=== PATIENT | female | born 1935 | race Hispanic/Latino ===

== ENCOUNTER → 2019-08-24 | Day surgery (SDC) | payer MEDICARE, OTHER ==
[~2019-08-24] MED LIST: ACETAMINOPHEN325 M1 PO; ARICEPT5 MG PO; ASPIR 8181 MG PO; ASPIRIN325 MG PO; ASPIRIN81 MG; BISCOLAX10 MG RC; CEFAZOLIN SOD 1 GM/NS 50ML 50 ML IV ONE; CYMBALTA60 MG PO; DOXYCYCLINE MO100 MG PO; ENALAPRIL MALEA20 MG PO; ENALAPRIL-HCTZ1 EACH PO; ENSURE LIQUID237 ML; EXELON1 EAC1 TOP; FENTANYL CITRATE/PF 100MCG/2 ML INJ ONE; GABAPENTIN100 MG PO; GLUCAGON FOR INJ 1 MG VIAL IV STA; HCT PO; HYDROCHLOROTH12.5 M1 PO; HYDROCODON-ACE1 EA16 PO; IOPAMIDOL 300MG/ML 100 ML INFUS..BTL IV ONE; LABETALOL HCL100 MG PO; LEVOTHYROXINE50 MCG PO; LIDOCAINE HCL 1% LOCAL INJ 20 ML VIAL ONE; METOPROLOL SUCC25 MG PO; MIDAZOLAM HCL 2 MG/2 ML VIAL ONE; MIRALAX17 GM PO; MULTI-VITAMIN1 EACH PO; NAPROSYN500 MG PO; NEURONTIN100 MG PO; NORCO 5-325 TA1 EACH PO; NORCO 7.5-3251 EACH PO; OYSTER SHELL C1 EACH PO; PENTOXIFYLLINE400 MG PO; PRAVASTATIN PO; PRAVASTATIN SOD40 MG PO; PROPOFOL IV EMULSION 10 MG/ML 20 ML VIAL ONE; REMERON15 M1 PO; SAVELLA50 MG PO; SENOKOT8.6 MG PO; SEROQUEL25 MG PO; SERTRALINE HCL100 MG PO; SODIUM CHLORIDE 0.9% 250ML 250 ML ONE; TOPROL XL25 MG PO; TRENTAL400 MG PO; TYLENOL EXTRA500 MG PO; TYLENOL WITH C1 EACH PO; ULTRAM 50MG50 MG PO; ULTRAM50 MG PO; VANCOMYCIN HCL500 MG IV; VASOTEC10 MG PO; VESICARE5 MG PO; VITAMIN D1000 UNIT PO; ZOCOR40 MG PO; [UNRECOGNIZED DRUG - OTHER]; [UNRECOGNIZED DRUG - REMARK]; megace PO
--- OUTSIDE RECORDS SUMMARY | 2019-08-24 08:45 | XMS REPORT ---
Author Author [facility] Address Unknown Phone Unavailable Care Team Providers Care Taker Off Name Role Phone Unavailable Unavailable Payers Payer Name Policy Type Policy Number Effective Date Expiration Date Problems This patient has no known problems. Allergies, Adverse Reactions, Alerts Allergy Name Allergy Type Status Severity Reaction(s) Onset Date Inactive Date Treating Clinician Comments No Known Allergies DA Active U 2019-06-16 00:00:00 No Known Allergies DA Active U 2014-07-31 00:00:00 Medications This patient has no known medications. Results Test Description Test Time Test Comments Text Results Atomic Results Result Comments GLUBED 2019-06-21 11:36:00 GLUBED (test code=GLUBED) 116 mg/dL 74-106 Performed by certified cover machine operator at [facility] HGB [id number] 07:46:00* Test Item Value Reference Range Comments HEMOGLOBIN (test code=HGB) 9.8 gram/dL 11.5-15.5 HEMATOCRIT (test code=HCT) 30.7 % 36.0-46.0 [id number] 07:42:00* Test Item Value Reference Range Comments GLUBED (test code=GLUBED) 114 mg/dL 74-106 Performed by certified cover machine operator at [facility] [id number] 20:44:00* Test Item Value Reference Range Comments GLUBED (test code=GLUBED) 137 mg/dL 74-106 Performed by certified cover machine operator at [facility] [id number] 16:18:00* Test Item Value Reference Range Comments GLUBED (test code=GLUBED) 124 mg/dL 74-106 Performed by certified cover machine operator at [facility] BASIC METABOLIC [id number] 12:58:00* Test Item Value Reference Range Comments SODIUM (test code=NA) 145 mmol/L 136-145 POTASSIUM (test code=K) 3.8 mmol/L 3.5-5.1 CHLORIDE (test code=CL) 111.0 mmol/L 98-107 CARBON DIOXIDE (test code=CO2) 30.0 mmol/L 21-32 ANION GAP (test code=GAP) 7.8 10-20 GLUCOSE (test code=GLU) 131 mg/dL 74-106 BLOOD UREA NITROGEN (test code=BUN) 21 mg/dL 7-18 GLOMERULAR FILTRATION RATE (test code=GFR) > 60 mL/min >=60 Estimated GFR by using Modified MDRD formula.Chronic kidney disease is defined as either kidney damageor GFR <60 mL/min/1.73 m2 for >3 months. CREATININE (test code=CREAT) 0.50 mg/dL 0.55-1.02 Note change in reference range due to change in reagent. BUN/CREATININE RATIO (test code=BUN/CREA) 42.0 10-20 CALCIUM (test code=CA) 7.9 mg/dL 8.5-10.1 BASIC METABOLIC [id number] 12:50:00* Test Item Value Reference Range Comments SODIUM (test code=NA) 145 mmol/L 136-145 POTASSIUM (test code=K) 3.8 mmol/L 3.5-5.1 CHLORIDE (test code=CL) 111.0 mmol/L 98-107 CARBON DIOXIDE (test code=CO2) mmol/L 21-32 ANION GAP (test code=GAP) 10-20 GLUCOSE (test code=GLU) mg/dL 74-106 BLOOD UREA NITROGEN (test code=BUN) mg/dL 7-18 GLOMERULAR FILTRATION RATE (test code=GFR) mL/min >=60 CREATININE (test code=CREAT) mg/dL 0.55-1.02 BUN/CREATININE RATIO (test code=BUN/CREA) 10-20 CALCIUM (test code=CA) mg/dL 8.5-10.1 CBC W/AUTO [id number] 12:27:00* Test Item Value Reference Range Comments WHITE BLOOD CELL (test code=WBC) 4.7 K/mm3 4.5-12.5 RED BLOOD CELL (test code=RBC) 3.02 mill/mm3 3.7-5.2 HEMOGLOBIN (test code=HGB) 9.3 gram/dL 11.5-15.5 HEMATOCRIT (test code=HCT) 28.9 % 36.0-46.0 MEAN CELL VOLUME (test code=MCV) 95.7 fL 80-98 MEAN CELL HGB (test code=MCH) 30.8 picogram 27.0-33.0 MEAN CELL HGB CONCETRATION (test code=MCHC) 32.2 gram/dL 33.0-36.0 RED CELL DISTRIBUTION WIDTH (test code=RDW) 13.1 % 11.6-16.2 RED CELL DISTRIBUTION WIDTH SD (test code=RDW-SD) 45.3 fL 37.0-51.0 PLATELET COUNT (test code=PLT) 159 K/mm3 150-450 MEAN PLATELET VOLUME (test code=MPV) 11.7 fL 6.7-11.0 NEUTROPHIL % (test code=NT%) 64.6 % 39.0-69.0 IMMATURE GRANULOCYTE % (test code=IG%) 0.2 % 0.0-5.0 LYMPHOCYTE % (test code=LY%) 21.4 % 25.0-55.0 MONOCYTE % (test code=MO%) 8.1 % 0.0-10.0 EOSINOPHIL % (test code=EO%) 5.3 % 0.0-5.0 BASOPHIL % (test code=BA%) 0.4 % 0.0-1.0 NUCLEATED RBC % (test code=NRBC%) 0.0 % 0-0 NEUTROPHIL # (test code=NT#) 3.04 K/mm3 1.8-7.7 IMMATURE GRANULOCYTE # (test code=IG#) 0.01 x10 3/uL 0-0.03 LYMPHOCYTE # (test code=LY#) 1.01 K/mm3 1.0-5.0 MONOCYTE # (test code=MO#) 0.38 K/mm3 0-0.8 EOSINOPHIL # (test code=EO#) 0.25 K/mm3 0.0-0.5 BASOPHIL # (test code=BA#) 0.02 K/mm3 0.0-0.2 NUCLEATED RBC # (test code=NRBC#) 0.00 K/mm3 0.0-0.1 MANUAL DIFF REQUIRED (test code=MDIFF) NO [id number] 11:48:00* Test Item Value Reference Range Comments GLUBED (test code=GLUBED) 129 mg/dL 74-106 Performed by certified cover machine operator at [facility] [id number] 08:21:00* Test Item Value Reference Range Comments GLUBED (test code=GLUBED) 129 mg/dL 74-106 Performed by certified cover machine operator at [facility] [id number] 21:12:00* Test Item Value Reference Range Comments GLUBED (test code=GLUBED) 111 mg/dL 74-106 Performed by certified cover machine operator at [facility] [id number] 16:28:00* Test Item Value Reference Range Comments GLUBED (test code=GLUBED) 132 mg/dL 74-106 Performed by certified cover machine operator at [facility] [id number] 11:51:00* Test Item Value Reference Range Comments GLUBED (test code=GLUBED) 162 mg/dL 74-106 Performed by certified cover machine operator at [facility] CBC W/AUTO [id number] 09:41:00* Test Item Value Reference Range Comments WHITE BLOOD CELL (test code=WBC) 6.0 K/mm3 4.5-12.5 RED BLOOD CELL (test code=RBC) 3.33 mill/mm3 3.7-5.2 HEMOGLOBIN (test code=HGB) 10.5 gram/dL 11.5-15.5 HEMATOCRIT (test code=HCT) 32.0 % 36.0-46.0 MEAN CELL VOLUME (test code=MCV) 96.1 fL 80-98 MEAN CELL HGB (test code=MCH) 31.5 picogram 27.0-33.0 MEAN CELL HGB CONCETRATION (test code=MCHC) 32.8 gram/dL 33.0-36.0 RED CELL DISTRIBUTION WIDTH (test code=RDW) 12.6 % 11.6-16.2 RED CELL DISTRIBUTION WIDTH SD (test code=RDW-SD) 44.3 fL 37.0-51.0 PLATELET COUNT (test code=PLT) 153 K/mm3 150-450 MEAN PLATELET VOLUME (test code=MPV) 12.2 fL 6.7-11.0 NEUTROPHIL % (test code=NT%) 65.4 % 39.0-69.0 IMMATURE GRANULOCYTE % (test code=IG%) 0.2 % 0.0-5.0 LYMPHOCYTE % (test code=LY%) 21.8 % 25.0-55.0 MONOCYTE % (test code=MO%) 11.6 % 0.0-10.0 EOSINOPHIL % (test code=EO%) 0.7 % 0.0-5.0 BASOPHIL % (test code=BA%) 0.3 % 0.0-1.0 NUCLEATED RBC % (test code=NRBC%) 0.0 % 0-0 NEUTROPHIL # (test code=NT#) 3.90 K/mm3 1.8-7.7 IMMATURE GRANULOCYTE # (test code=IG#) 0.01 x10 3/uL 0-0.03 LYMPHOCYTE # (test code=LY#) 1.30 K/mm3 1.0-5.0 MONOCYTE # (test code=MO#) 0.69 K/mm3 0-0.8 EOSINOPHIL # (test code=EO#) 0.04 K/mm3 0.0-0.5 BASOPHIL # (test code=BA#) 0.02 K/mm3 0.0-0.2 NUCLEATED RBC # (test code=NRBC#) 0.00 K/mm3 0.0-0.1 MANUAL DIFF REQUIRED (test code=MDIFF) NO - XR HIP W/PEL UNI 2+V [id number] 09:26:00 FAX: Taz Whalen [phone] [place]: B St: [facility] FAX: Vi Sanchez MD FAX: Basil Escobar [phone] Name: JONATHAN CRUZ [facility] : 1935 Age/S: 84/F [address] [facility] Unit #: [id number] Loc: [address] [place] [address] Phys: Taz Connors Jr, MD Acct: [id number] Dis Date: Status: ADM IN ONE #: [phone] Exam Date: 06/19/2019 0900 FAX #: [phone] Reason: S/P ORIF left hip EXAMS: CPT CODE: [id number] XR HIP W/PEL UNI 2+[place] [id number] HISTORY: S/P ORIF left hip EXAM: AP pelvis as well as 2 views of the left hip Comparison: Pelvic radiographs June 16, 2019 FINDI NGS: Patient has undergone interval ORIF of the intertrochanteric femoral fracture. Bony alignment is satisfactory postoperatively. Soft tis sues overlying the proximal left thigh are swollen. 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 IMPRESSION: Satis factory bone alignment following ORIF of left femoral intertrochanteric fracture. at 0915 Reported and signed by: Lucas Tilley MD CC: Taz Connors Jr, MD; Vi Gerber MD; Basil Palacios MD Technologist: Ines Nava RT(R) Trnscrd Date/Time/By: 06/19/2019 (925) : By: [email or web address] Orig Print D/T: S: 06/19/2019 (9577) PAGE 1 Signed Report BASIC METABOLIC [id number] 09:02:00* Test Item Value Reference Range Comments SODIUM (test code=NA) 143 mmol/L 136-145 POTASSIUM (test code=K) 3.8 mmol/L 3.5-5.1 CHLORIDE (test code=CL) 108.0 mmol/L 98-107 CARBON DIOXIDE (test code=CO2) 29.0 mmol/L 21-32 ANION GAP (test code=GAP) 9.8 10-20 GLUCOSE (test code=GLU) 131 mg/dL 74-106 BLOOD UREA NITROGEN (test code=BUN) 24 mg/dL 7-18 GLOMERULAR FILTRATION RATE (test code=GFR) > 60 mL/min >=60 Estimated GFR by using Modified MDRD formula.Chronic kidney disease is defined as either kidney damageor GFR <60 mL/min/1.73 m2 for >3 months. CREATININE (test code=CREAT) 0.70 mg/dL 0.55-1.02 Note change in reference range due to change in reagent. BUN/CREATININE RATIO (test code=BUN/CREA) 33.9 10-20 CALCIUM (test code=CA) 8.3 mg/dL 8.5-10.1 BASIC METABOLIC [id number] 08:57:00* Test Item Value Reference Range Comments SODIUM (test code=NA) 143 mmol/L 136-145 POTASSIUM (test code=K) 3.8 mmol/L 3.5-5.1 CHLORIDE (test code=CL) 108.0 mmol/L 98-107 CARBON DIOXIDE (test code=CO2) mmol/L 21-32 ANION GAP (test code=GAP) 10-20 GLUCOSE (test code=GLU) mg/dL 74-106 BLOOD UREA NITROGEN (test code=BUN) mg/dL 7-18 GLOMERULAR FILTRATION RATE (test code=GFR) mL/min >=60 CREATININE (test code=CREAT) mg/dL 0.55-1.02 BUN/CREATININE RATIO (test code=BUN/CREA) 10-20 CALCIUM (test code=CA) mg/dL 8.5-10.1 [id number] 08:02:00* Test Item Value Reference Range Comments GLUBED (test code=GLUBED) 129 mg/dL 74-106 Performed by certified cover machine operator at [facility] [id number] 20:28:00* Test Item Value Reference Range Comments GLUBED (test code=GLUBED) 148 mg/dL 74-106 Performed by certified cover machine operator at [facility] [id number] 15:57:00* Test Item Value Reference Range Comments GLUBED (test code=GLUBED) 175 mg/dL 74-106 Performed by certified cover machine operator at [facility] [id number] 11:42:00* Test Item Value Reference Range Comments GLUBED (test code=GLUBED) 170 mg/dL 74-106 Performed by certified cover machine operator at [facility] URINALYSIS [id number] 10:59:00* Test Item Value Reference Range Comments UA COLOR (test code=COLU) YELLOW YELLOW UA APPEARANCE (test code=APPU) CLEAR CLEAR UA GLUCOSE DIPSTICK (test code=DGLUU) NEGATIVE mg/dL NEGATIVE UA BILIRUBIN DIPSTICK (test code=BILU) NEGATIVE mg/dL NEGATIVE UA KETONE DIPSTICK (test code=KETU) 20 (1+) mg/dL NEGATIVE UA SPECIFIC GRAVITY (test code=SGU) 1.027 1.001-1.035 UA BLOOD DIPSTICK (test code=BRIAN) Negative mg/dL NEGATIVE UA PH DIPSTICK (test code=VEL) 6.0 5.0-8.0 UA PROTEIN DIPSTICK (test code=PROU) 30 (1+) mg/dL NEGATIVE UA UROBILINIOGEN DIPSTICK (test code=URO) 6.0 (2+) mg/dL NEGATIVE UA NITRITE DIPSTICK (test code=SONNY) NEGATIVE NEGATIVE UA LEUKOCYTE ESTERASE W REFLEX (test code=LEUUR) 500 Robbie/uL (3+) Robbie/uL NEGATIVE UA WBC (test code=WBCU) 51-100 per HPF 0-5 UA RBC (test code=RBCU) 3-5 #/HPF 0-5 UA WBC CLUMPS (test code=WBCUCL) 3-6 /HPF NONE UA EPITHELIAL CELLS (test code=EPIU) FEW per HPF FEW UA BACTERIA (test code=BACU) FEW #/HPF NONE UA MUCUS (test code=MUCU) FEW #/LPF FEW Urine Source? [id number] 20:50:00* Test Item Value Reference Range Comments GLUBED (test code=GLUBED) 152 mg/dL 74-106 Performed by certified cover machine operator at [facility] [id number] 15:45:00* Test Item Value Reference Range Comments GLUBED (test code=GLUBED) 172 mg/dL 74-106 Performed by certified cover machine operator at [facility] [id number] 15:45:00* Test Item Value Reference Range Comments GLUBED (test code=GLUBED) 141 mg/dL 74-106 Performed by certified cover machine operator at [facility] [id number] 12:52:00* Test Item Value Reference Range Comments GLYCOSYLATED HEMOGLOBIN (HA1C) (test code=GLYHGB) 7.1 % HbA1 4.8-6.0 ESTIMATED AVERAGE GLUCOSE (test code=EAG) 157 MG/DL [id number] 09:05:00* Test Item Value Reference Range Comments TROPONIN-I (test code=TROPI) <0.015 ng/mL 0-0.045 COMMENTS TO COMMUNICATIONS EXECUTIVE: COLLECT 3 HOURS AFTER PREVIOUS SAMPLECOMPREHENSIVE METABOLIC [id number] 08:31:00* Test Item Value Reference Range Comments SODIUM (test code=NA) 142 mmol/L 136-145 POTASSIUM (test code=K) 4.0 mmol/L 3.5-5.1 CHLORIDE (test code=CL) 109.0 mmol/L 98-107 CARBON DIOXIDE (test code=CO2) 28.0 mmol/L 21-32 ANION GAP (test code=GAP) 9.0 10-20 GLUCOSE (test code=GLU) 142 mg/dL 74-106 BLOOD UREA NITROGEN (test code=BUN) 14 mg/dL 7-18 GLOMERULAR FILTRATION RATE (test code=GFR) > 60 mL/min >=60 Estimated GFR by using Modified MDRD formula.Chronic kidney disease is defined as either kidney damageor GFR <60 mL/min/1.73 m2 for >3 months. CREATININE (test code=CREAT) 0.50 mg/dL 0.55-1.02 Note change in reference range due to change in reagent. BUN/CREATININE RATIO (test code=BUN/CREA) 25.7 10-20 TOTAL PROTEIN (test code=PROT) 6.7 gram/dL 6.4-8.2 ALBUMIN (test code=ALB) 2.6 g/dL 3.4-5.0 GLOBULIN (test code=GLOB) 4.1 gram/dL 2.7-4.2 ALBUMIN/GLOBULIN RATIO (test code=A/G) 0.6 0.75-1.50 CALCIUM (test code=CA) 8.4 mg/dL 8.5-10.1 BILIRUBIN TOTAL (test code=BILT) 0.80 mg/dL 0.0-1.0 SGOT/AST (test code=AST) 23 IUnit/L 15-37 SGPT/ALT (test code=ALT) 19 IUnit/L 12-78 ALKALINE PHOSPHATASE TOTAL (test code=ALKP) 104 IUnit/L 45-117 Note change in reference range due to change in reagent. [id number] 08:31:00* Test Item Value Reference Range Comments MAGNESIUM (test code=MAG) 2.1 mg/dL 1.8-2.4 COMPREHENSIVE METABOLIC [id number] 08:25:00* Test Item Value Reference Range Comments SODIUM (test code=NA) 142 mmol/L 136-145 POTASSIUM (test code=K) 4.0 mmol/L 3.5-5.1 CHLORIDE (test code=CL) 109.0 mmol/L 98-107 CARBON DIOXIDE (test code=CO2) mmol/L 21-32 ANION GAP (test code=GAP) 10-20 GLUCOSE (test code=GLU) mg/dL 74-106 BLOOD UREA NITROGEN (test code=BUN) mg/dL 7-18 GLOMERULAR FILTRATION RATE (test code=GFR) mL/min >=60 CREATININE (test code=CREAT) mg/dL 0.55-1.02 BUN/CREATININE RATIO (test code=BUN/CREA) 10-20 TOTAL PROTEIN (test code=PROT) gram/dL 6.4-8.2 ALBUMIN (test code=ALB) g/dL 3.4-5.0 GLOBULIN (test code=GLOB) gram/dL 2.7-4.2 ALBUMIN/GLOBULIN RATIO (test code=A/G) 0.75-1.50 CALCIUM (test code=CA) mg/dL 8.5-10.1 BILIRUBIN TOTAL (test code=BILT) mg/dL 0.0-1.0 SGOT/AST (test code=AST) IUnit/L 15-37 SGPT/ALT (test code=ALT) IUnit/L 12-78 ALKALINE PHOSPHATASE TOTAL (test code=ALKP) IUnit/L 45-117 [id number] 08:25:00* Test Item Value Reference Range Comments MAGNESIUM (test code=MAG) mg/dL 1.8-2.4 [id number] 08:22:00* Test Item Value Reference Range Comments GLUBED (test code=GLUBED) 144 mg/dL 74-106 Performed by certified cover machine operator at [facility] CBC W/O [id number] 07:48:00* Test Item Value Reference Range Comments WHITE BLOOD CELL (test code=WBC) 6.0 K/mm3 4.5-12.5 RED BLOOD CELL (test code=RBC) 3.68 mill/mm3 3.7-5.2 HEMOGLOBIN (test code=HGB) 11.7 gram/dL 11.5-15.5 HEMATOCRIT (test code=HCT) 35.4 % 36.0-46.0 MEAN CELL VOLUME (test code=MCV) 96.2 fL 80-98 MEAN CELL HGB (test code=MCH) 31.8 picogram 27.0-33.0 MEAN CELL HGB CONCETRATION (test code=MCHC) 33.1 gram/dL 33.0-36.0 RED CELL DISTRIBUTION WIDTH (test code=RDW) 12.9 % 11.6-16.2 PLATELET COUNT (test code=PLT) 132 K/mm3 150-450 MEAN PLATELET VOLUME (test code=MPV) 12.6 fL 6.7-11.0 CBC W/O [id number] 07:45:00* Test Item Value Reference Range Comments WHITE BLOOD CELL (test code=WBC) K/mm3 4.5-12.5 RED BLOOD CELL (test code=RBC) mill/mm3 3.7-5.2 HEMOGLOBIN (test code=HGB) 11.7 gram/dL 11.5-15.5 HEMATOCRIT (test code=HCT) % 36.0-46.0 MEAN CELL VOLUME (test code=MCV) fL 80-98 MEAN CELL HGB (test code=MCH) picogram 27.0-33.0 MEAN CELL HGB CONCETRATION (test code=MCHC) gram/dL 33.0-36.0 RED CELL DISTRIBUTION WIDTH (test code=RDW) % 11.6-16.2 PLATELET COUNT (test code=PLT) K/mm3 150-450 MEAN PLATELET VOLUME (test code=MPV) fL 6.7-11.0 ARTERIAL BLOOD [id number] 02:06:00* Test Item Value Reference Range Comments ARTERIAL BLOOD GAS PH (test code=PHA) 7.39 7.35-7.45 ARTERIAL BLOOD GAS PCO2 (test code=PCO2A) 44.3 mm Hg 35-45 ARTERIAL BLOOD GAS PO2 (test code=PO2A) 80.7 mmHg 80-100 BICARBONATE TOTAL HCO3 (test code=HCO3) 26.0 mmol/L 23.0-27.0 BASE EXCESS (test code=KATIE) 0.7 mmol/L -3.0-5.0 ABG O2 SATURATION (test code=SATA) 95.5 % 90.0-98.0 ABG TYPE (test code=TYPEA) Arterial FIO2 (test code=FIO2A) 21.0 ABG SITE (test code=SITEA) Lt RADIAL ARTERY MODIFIED ALLENS (test code=MODALL) Yes CHECK PERFORMED HEMATOCRIT (test code=HCT/ABG) 36 % 35-47 TOTAL HGB (test code=THB) 12.2 gram/dL 11.5-15.5 HGB O2 SAT (test code=HBOSAT) 94.9 % 94.00-98.00 CARBOXYHEMOGLOBIN (test code=HOHGBT) 0.3 %totalHg 0.5-1.5 Results called to and read back by jaclyn : - 06/17/2019; by [id number] METHEMOGLOBIN (test code=METHGB) 0.3 % 0.0-1.50 O2 CONTENT (test code=O2CT) 16.3 % vol 18.0-22.0 THYROID PROFILE [id number] 01:26:00* Test Item Value Reference Range Comments T3 UPTAKE (test code=T3UP) 39.0 % 30.0-40.0 T4 (THYROXINE) (test code=T4) 7.7 ug/dL 4.5-13.9 T7 (FREE THYROXINE INDEX) (test code=T7) 3.00 FTI 1.3-5.1 THYROID STIMULATING HORMONE (test code=TSH) 7.210 uIU/mL 0.36-3.74 TSH REFERENCE RANGES: EUTHYROID: 0.35 - 4.3 mIU/mL HYPO : > 5.5 mIU/mL HYPER : < 0.35 mIU/mL [id number] 01:06:00* Test Item Value Reference Range Comments TROPONIN-I (test code=TROPI) <0.015 ng/mL 0-0.045 COMMENTS TO COMMUNICATIONS EXECUTIVE: COLLECT 3 HOURS AFTER PREVIOUS [id number] 21:14:00* Test Item Value Reference Range Comments TROPONIN-I (test code=TROPI) <0.015 ng/mL 0-0.045 [id number] 21:07:00* Test Item Value Reference Range Comments MAGNESIUM (test code=MAG) 2.0 mg/dL 1.8-2.4 CBC W/O [id number] 20:41:00* Test Item Value Reference Range Comments WHITE BLOOD CELL (test code=WBC) 7.7 K/mm3 4.5-12.5 RED BLOOD CELL (test code=RBC) 4.04 mill/mm3 3.7-5.2 HEMOGLOBIN (test code=HGB) 12.6 gram/dL 11.5-15.5 HEMATOCRIT (test code=HCT) 37.7 % 36.0-46.0 MEAN CELL VOLUME (test code=MCV) 93.6 fL 80-98 MEAN CELL HGB (test code=MCH) 31.4 picogram 27.0-33.0 MEAN CELL HGB CONCETRATION (test code=MCHC) 33.6 gram/dL 33.0-36.0 RED CELL DISTRIBUTION WIDTH (test code=RDW) 12.7 % 11.6-16.2 PLATELET COUNT (test code=PLT) 159 K/mm3 150-450 MEAN PLATELET VOLUME (test code=MPV) 12.8 fL 6.7-11.0 BASIC METABOLIC [id number] 20:39:00* Test Item Value Reference Range Comments SODIUM (test code=NA) 143 mmol/L 136-145 POTASSIUM (test code=K) 4.2 mmol/L 3.5-5.1 CHLORIDE (test code=CL) 108.0 mmol/L 98-107 CARBON DIOXIDE (test code=CO2) 27.0 mmol/L 21-32 ANION GAP (test code=GAP) 12.2 10-20 GLUCOSE (test code=GLU) 208 mg/dL 74-106 BLOOD UREA NITROGEN (test code=BUN) 16 mg/dL 7-18 GLOMERULAR FILTRATION RATE (test code=GFR) > 60 mL/min >=60 Estimated GFR by using Modified MDRD formula.Chronic kidney disease is defined as either kidney damageor GFR <60 mL/min/1.73 m2 for >3 months. CREATININE (test code=CREAT) 0.70 mg/dL 0.55-1.02 Note change in reference range due to change in reagent. BUN/CREATININE RATIO (test code=BUN/CREA) 24.6 10-20 CALCIUM (test code=CA) 8.9 mg/dL 8.5-10.1 PROTHROMBIN [id number] 20:36:00* Test Item Value Reference Range Comments PROTHROMBIN TIME PATIENT (test code=PTP) 12.6 seconds 9.0-14.0 INTERNATIONAL NORMAL RATIO (test code=INR) 1.1 0.8-1.2 The therapeutic range for oral anticoagulant therapy formost indications is an international normalized ratio (INR)of between 2.0 and 3.0. The recommended therapeutic INRrange for various clinical situations is listed below: Clinical Situation INR range Pulmonary e mbolism treatment (2.0-3.0)Venous thrombosis treatmentVenous thrombosis prophylaxis (high risk surgery)Prevention of systemic embolism from: Acute myocardial infarction Valvular heart disease Atrial fibrillation Mechanical prosthetic heart valves (2.5-3.5) IS PATIENT ON ANTICOAGULANTS? NTHROMBOPLASTIN TIME [id number] 20:36:00* Test Item Value Reference Range Comments THROMBOPLASTIN TIME PARTIAL (test code=PTT) 30.0 seconds 25.0-36.5 IS PATIENT ON ANTICOAGULANTS? NBASIC METABOLIC [id number] 20:28:00* Test Item Value Reference Range Comments SODIUM (test code=NA) 143 mmol/L 136-145 POTASSIUM (test code=K) 4.2 mmol/L 3.5-5.1 CHLORIDE (test code=CL) 108.0 mmol/L 98-107 CARBON DIOXIDE (test code=CO2) mmol/L 21-32 ANION GAP (test code=GAP) 10-20 GLUCOSE (test code=GLU) mg/dL 74-106 BLOOD UREA NITROGEN (test code=BUN) mg/dL 7-18 GLOMERULAR FILTRATION RATE (test code=GFR) mL/min >=60 CREATININE (test code=CREAT) mg/dL 0.55-1.02 BUN/CREATININE RATIO (test code=BUN/CREA) 10-20 CALCIUM (test code=CA) mg/dL 8.5-10.1 - XR TIBIA/FIBULA 2 V [id number] 20:26:00 FAX: Adrian Kumar MD [phone] [place]: B St: REG FAX: Basil Escobar [phone] Name: JONATHAN CRUZ [facility] : 1935 Age/S: 84/F [address] [facility] Unit #: [id number] Loc: [place] [address] Phys: Adrian Kumar MD Acct: [id number] Dis Date: Status: REG ER PHONE #: [phone] Exam Date: 06/16/20191934 FAX #: [phone] Reason: LEG PAIN EXAMS: CPT CODE: [id number] XR TIBIA/FIBULA 2 [place] [id number] HISTORY: HIP PAIN EXAM: AP pelvis AP view of the left hip. AP and lateral views of the left femur. AP and lateral views of the left tibia and fibula. Comparison: None FINDING S: There is a intertrochanteric fracture of the left femur with pr oximal displacement of the femoral shaft. The left hip joint and right hip joint are congruent although there is narrowing of the joint spaces bilaterally. Prominent acetabular osteophytes are present. Degenerative c hanges are present in the spine. Degenerative changes are also present in the pubic symphysis. Degenerative changes are also present in the ankle. Large calcaneal enthesophytes are present. Excessive vascular calci fications are seen throughout the scanned left lower extremity. IMPRESSION: Intertrochanteric left femoral fracture with proximal displacement of the femoral shaft. No dislocation of the left hip joint. Degenerative changes throughout the visualized left lower extremity and pelvis. Peripheral vascular disease. at 2025 Reported and signed by: Lucas Tilley MD CC: Adrian Kumar MD; Basil Palacios MD Technologist: LUCIO ANTHONY RT(R) Trnscrd Date/Time/By: 06/16/2019 (2025) : By: [email or web address] O rig Print D/T: S: 06/16/2019 (2028) PAGE 1 Signed Report - XR FEMUR MIN 2 VWS LT 2019-06-16 20:26:00 FAX: Adrian Kumar MD [phone] [place]: St: REG FAX: Y Basil Palacios [phone] Name: JONATHAN CRUZ [facility] : 1935 Age/S: 84/F [address] [facility] Unit #: [id number] Loc: [place] [address] Phys: Adrian Kumar MD Acct: [id number] Dis Date: Status: REG ER PHONE #: [phone] Exam Date: 06/16/20191939 FAX #: [phone] Reason: THIGH PAIN EXAMS: CPT CODE: [id number] XR FEMUR MIN 2 [place] [address] HISTORY: HIP PAIN EXAM: AP pelvis AP view of the left hip. AP and lateral views of the left femur. AP and lateral views of the left tibia and fibula. Comparison: None FINDINGS: There is a intertrochanteric fracture of the left femur with proximal displacement of the femoral shaft. The left hip joint and right hip joint are congruent although there is narrowing of the joint spaces bilaterally. Prominent acetabular osteophytes are present. Degenerative changes are present in the spine. Degenerative changes are also present in the pubic symphysis. Degenerative changes are also present in the ankle. Large calcaneal enthesophytes are present. Excessive vascular calci fications are seen throughout the scanned left lower extremity. IMPRESSION: Intertrochanteric left femoral fracture with proximal displacement of the femoral shaft. No dislocation of the left hip joint. Degenerative changes throughout the visualized left lower extremity and pelvis. Peripheral vascular disease. at 2025 Reported and signed by: Lucas Tilley MD CC: Adrian Kumar MD; Basil Palacios MD Technologist: LUCIO CRUZ RT(R) Trnscrd Date/Time/By: 06/16/2019 (2025) : By: [email or web address] O rig Print D/T: S: 06/16/2019 (2028) PAGE 1 Signed Report - XR HIP W/PEL UNI 2+V LT 2019-06-16 20:26:00 FAX: Adrian Kumar MD [phone] [place]: St: REG FAX: Y Basil Palacios [phone] Name: JONATHAN CRUZ [facility] : 1935 Age/S: 84/F [address] [facility] Unit #: [id number] Loc: [place] [address] Phys: Adrian Kumar MD Acct: [id number] Dis Date: Status: REG ER PHONE #: [phone] Exam Date: 06/16/20191944 FAX #: [phone] Reason: HIP PAIN EXAMS: CPT CODE: [id number] XR HIP W/PEL UNI 2+V LT 70739 HISTORY: HIP PAIN EXAM: AP pelvis AP view of the left hip. AP and lateral views of the left femur. AP and lateral views of the left tibia and fibula. Comparison: None FINDINGS: There is a intertrochanteric fracture of the left femur with proximal displacement of the femoral shaft. The left hip joint and right hip joint are congruent although there is narrowing of the joint spaces bilaterally. Prominent acetabular osteophytes are present. Degenerative changes are present in the spine. Degenerative changes are also present in the pubic symphysis. Degenerative changes are also present in the ankle. Large calcaneal enthesophytes are present. Excessive vascular calci fications are seen throughout the scanned left lower extremity. IMPRESSION: Intertrochanteric left femoral fracture with proximal displacement of the femoral shaft. No dislocation of the left hip joint. Degenerative changes throughout the visualized left lower extremity and pelvis. Peripheral vascular disease. at 2025 Reported and signed by: Lucas Tilley MD CC: Adrian Kumar MD; Basil Palacios MD Technologist: RT ARJUN(R) Trnscrd Date/Time/By: 06/16/2019 (2025) : By: [email or web address] O rig Print D/T: S: 06/16/2019 (2028) PAGE 1 Signed Report CBC W/O [id number] 20:15:00* Test Item Value Reference Range Comments WHITE BLOOD CELL (test code=WBC) K/mm3 4.5-12.5 RED BLOOD CELL (test code=RBC) mill/mm3 3.7-5.2 HEMOGLOBIN (test code=HGB) 12.6 gram/dL 11.5-15.5 HEMATOCRIT (test code=HCT) 37.7 % 36.0-46.0 MEAN CELL VOLUME (test code=MCV) fL 80-98 MEAN CELL HGB (test code=MCH) picogram 27.0-33.0 MEAN CELL HGB CONCETRATION (test code=MCHC) gram/dL 33.0-36.0 RED CELL DISTRIBUTION WIDTH (test code=RDW) % 11.6-16.2 PLATELET COUNT (test code=PLT) K/mm3 150-450 MEAN PLATELET VOLUME (test code=MPV) fL 6.7-11.0 - XR CHEST 1 [id number] 20:04:00 FAX: Adrian Kumar MD [phone] [place]: B St: REG FAX: Y Basil Palacios [phone] Name: JONATHAN CRUZ [facility] : 1935 Age/S: 84/F [address] [facility] Unit #: [id number] Loc: [place] [address] Phys: Adrian Kumar MD Acct: [id number] Dis Date: Status: REG ER PHONE #: [phone] Exam Date: 06/16/20191944 FAX #: [phone] Reason: CHEST PAIN EXAMS: CPT CODE: [id number] XR CHEST 1 V 99961 REASON FOR EXAM: CHEST PAIN Exam Order Date: 06/16/2019 7:18 PM Ordering M.D.: Adrian Kumar MD PROCEDURE: - XR CHEST 1 V COMPARISON: 2 view chest x-ray May 14, 2014 FINDINGS: Lung volumes are diminished and there is subsegmental atelectasis in the lung bases. Additionally the right hemidiaphragm is elevated. There is no pleural effusion or pneumothorax. Pulmonary vascularity is within normal limits. Cardiomediastinal ernesto houette is normal in size for technique. The mediastinal contours are with in normal limits. Prior surgical fixation of a right humeral fract ure. No loosening of the visualized hardware. Bone mineralization is decre ased. Prior cholecystectomy. IMPRESSION: Low lung volumes with elevation of the right hemidiaphragm and de anda bsegmental atelectasis in the bilateral lung bases. Electronically S igned by Lucas Tilley MD on 06/16/2019 at 2003 Reported a nd signed by: Lucas Tilley MD CC: Adrian Kumar MD; Basil Palacios MD Technologist: LUCIO CRUZ, RT(R); ... Trnscrd Date/Time/By: 06/16/2019 (2003) : By: [email or web address] Orig Pr int D/T: S: 06/16/2019 (2006) PAGE 1 Signed Report - CT C-SPINE W/O CONTRAST 2019-06-16 20:00:00 Name: JONATHAN CRUZ [facility] : 1935 Age/S: 84 / F [address] [facility] Unit #: [id number] Loc: [place] [address] Phys: Adrian Kumar MD Acct: [id number] Dis Date: Status: REG ER PHONE #: [phone] Exam Date: 06/16/20191933 FAX #: [phone] Reason: Neck Pain EXAMS: CPT CODE: [id number] CT C-SPINE W/O CONTRAST 62915 HISTORY: HEADACHE TECHNIQUE: Noncontrast 2.[address] of the head and cervical spine. Examination acquired within 24 hours of arrival. Automated exposure control for dose reduction. COMPARISON: CT scan of the brain and cervical spine July 31, 2014 FINDINGS: No lacerations or contusions of the scalp or facial soft tissues.. Calvarium and skull base are intact. No acute hemorrhage. No intracranial mass, mass effect, or midline shift. There is diffuse cortical atrophy that is more pronounced from the previous exam. There is also worsening microvascular ischemic changes of the white matter. No hydrocephalus.. No extra-axial fluid collection. Visualized paranasal sinuses are clear. Mastoid air cells and middle ear cavities are clear. Orbital contents are unremarkable. No acute fracture of the cervical spine. No subluxation. Craniocervical and cervicothoracic articulations are appropriate. Height loss of vertebral bodies C4-C7 that is similar to the prior exam. There is worsening height loss of the C4-C5 and C5-C6 disc spaces however. There is multilevel facet hypertrophy. Moderate foraminal narrowing bilaterally at C3-C4. Severe right-sided and moderate left-sided foraminal narrowing at C4-C5. Severe right-sided and moderate left-sided foraminal narrowing at C5-C6. No prevertebral or paraspinal soft tissue abnormality. Lung apices are clear. IMPRESSION: Diffuse cortical atrophy and microvascular ischemic changes of the brain have progressed since the prior exam. No acute intracranial PAGE 1 Signed Report (CONTINUED) Name: JONATHAN CRUZ [facility] : 1935 Age/S: 84 / F [address] [facility] Unit #: [id number] Loc: [place] [address] Phys: Adrian Kumar MD Acct: [id number] Dis Date: Status: REG ER PHONE #: [phone] Exam Date: 06/16/20191933 FAX #: [phone] Reason: Neck Pain EXAMS: CPT CODE: [id number] CT C-SPINE W/O CONTRAST 11261 < Continued> hemorrhage or mass effect however. Worsening degenerative changes of the cervical spine. No acute fracture or malalignment however. at 1999 Reported and signed by: Lucas Tilley MD CC: Adrian Kumar MD; Basil Palacios MD Technologist:Kmaeron Quintanilla, RT(R)(CT); February CTDI: DLP: Trnscb Date/Time: 06/16/2019 (1999) [email or web address] Orig Print D/T: S: 06/16/2019 (2002) PAGE 2 Signed Report - CT HEAD/BRAIN W/O [id number] 20:00:00 Name: JONATHAN CRUZ [facility] : 1935 Age/S: 84 / F [address] [facility] Unit #: [id number] Loc: [place] [address] Phys: Roberto Kumar MD Acct: [id number] Di s Date: Status: REG ER PHONE #: Exam Date: 06/16/20191933 FAX #: Reason: HEADACHE EXAMS: CPT CODE: [id number] CT HEAD/BRAIN W/O CONT 07788 HISTORY: HEADACHE TECHNIQUE: Noncontrast 2.[address] of the head and cervical spine. Examination acquired within 24 hours of arrival. Automated exposure c ontrol for dose reduction. COMPARISON: CT scan of the brain and ce rvical spine July 31, 2014 FINDINGS: No laceration s or contusions of the scalp or facial soft tissues.. Calvarium and skull base are intact. No acute hemorrhage. No intracranial mass, mass effect, or midline shift. There is diffuse cortical atroph y that is more pronounced from the previous exam. There is also worsening microvascular ischemic changes of the white matter. No hydro cephalus.. No extra-axial fluid collection. Visualized paranasal sinuses are clear. Mastoid air cells and middle ear cavities are clear. Orbital contents are unremarkable. No acute fracture of the cervical spine. No subluxation. Craniocervical and cervicothoracic articu lations are appropriate. Height loss of vertebral bodies C4-C7 th at is similar to the prior exam. There is worsening height loss of the C4- C5 and C5-C6 disc spaces however. There is multilevel facet hypertro phy. Moderate foraminal narrowing bilaterally at C3-C4. Severe right-sided and moderate left-sided foraminal narrowing at C4-C5. Severe right- sided and moderate left-sided foraminal narrowing at C5-C6. No pre vertebral or paraspinal soft tissue abnormality. Lung apices are clear. IMPRESSION: Diffuse cortical atrophy and microvascular ischemic changes of the brain have progressed since the prior exam. No acute intracranial PAGE 1 Signed Repor t (CONTINUED) Name: JONATHAN CRUZ [facility] : 1935 Age/S: 84 / F [address] [facility] Unit #: [id number] Loc: [place], [place] [address] Phys: Adrian Kumar MD Acct: [id number] Dis Date: Status: REG ER PHONE #: [phone] Exam Date: 06/16/20191933 FAX #: [phone] Reason: HEADACHE EXAMS: CPT CODE: [id number] CT HEAD/BRAIN W/O CONT 31912 < Continued> hemorrhage or mass effect however. Worsening degenerative changes of the cervical spine. No acute fracture or malalignment however. at 1999 Reported and signed by: Lucas Tilley MD CC: Adrian Kumar MD; Basil Palacios MD Technologist:Kameron Quintanilla, RT(R)(); February CTDI: DLP: Trnscb Date/Time: 06/16/2019 (1999) [email or web address] Orig Print D/T: S: 06/16/2019 (2002) PAGE 2 Signed Report
--- NOTE | 2019-08-24 12:03 | Operative Report ---
DATE OF PROCEDURE: 08/24/2019 SURGEON: Brandon Weldon MD PROCEDURE: EGD with PEG tube placement. INDICATIONS FOR PROCEDURE: Abnormal modified barium swallow. MEDICATIONS: The patient was done under MAC, please see anesthesiologist's note. PROCEDURE IN DETAIL: With the patient in the supine position, a flexible fiberoptic Olympus gastroscope was introduced into the esophagus under direct visualization without any difficulty. There was some patchy erythema noted in distal esophagus. The scope was then advanced with ease into the stomach traversing a moderate-sized hiatal hernia. The mucosa overlying the antrum and the body revealed some patchy erythema. Pylorus was intubated with ease and the scope was advanced all the way to the second portion of the duodenum. The mucosa overlying the proximal second portion and duodenal bulb appeared to be within normal limits. The scope was then withdrawn back into the stomach and retroflexed, and the previously described hiatal hernia was also noted in the retroflexed position. The scope was then straightened out and with transabdominal illumination as well as external digital palpation, no safe entry point could be delineated for insertion of G-tube. The scope was subsequently withdrawn and the patient tolerated the procedure well. IMPRESSION: 1. Distal esophagitis, mild. 2. Hiatal hernia. 3. Gastritis, mild. 4. No safe entry point could be delineated with transabdominal illumination and external digital palpation. We will ask Interventional Radiology to see. Brandon Weldon MD [facility] [place]/MODL /[id number] cc: Kat Mcneil MD
[2019-08-24 13:00] VITALS: BP 112/84
[2019-08-24 14:05] LABS: INR 1.04; PROTHROMBIN TIME 14.1 seconds (11.9-14.5)
--- NOTE | 2019-08-24 16:33 | Diagnostic Imaging Report ---
PROCEDURE: Gastrostomy tube placement Procedural Personnel Attending physician(s): Nigel Paulino MD Fellow physician(s): None Resident physician(s): None Advanced practice provider(s): None Pre-procedure diagnosis: Altered mental status Post-procedure diagnosis: Same Indication: Nutritional support Additional clinical history: None Complications: No immediate complications. IMPRESSION: Percutaneous placement of 14 [place] push-type pigtail gastrostomy tube. Plan: Tube can be used for feeding starting 24 hours after placement. PROCEDURE SUMMARY: - Gastrostomy tube placement under fluoroscopic guidance - Additional procedure(s): None PROCEDURE DETAILS: Pre-procedure Consent: Informed consent for the procedure including risks, benefits and alternatives was obtained and time-out was performed prior to the procedure. Preparation: The site was prepared and draped using maximal sterile barrier technique including cutaneous antisepsis. Anesthesia/sedation Level of anesthesia/sedation: Moderate sedation (conscious sedation) Anesthesia/sedation administered by: Independent trained observer under attending supervision with continuous monitoring of the patient?s level of consciousness and physiologic status Total intra-service sedation time (minutes): 45 Gastrostomy tube placement A catheter was passed through the nose and into the stomach under fluoroscopic guidance. Local anesthesia was administered. The stomach was inflated with air and judged appropriate for access. 2 T-fasteners were placed under fluoroscopic guidance. The stomach was accessed and a wire was placed. The tract was dilated, the gastrostomy tube was advanced into the stomach, and intragastric position was confirmed with contrast injection. The tube was capped. Gastrostomy tube placed: 14Fr U[place]il pigtail Internal catheter securement: Locking loop External catheter securement: Non-absorbable suture Contrast Contrast agent: Isovue 370 Contrast volume (mL): 20 Radiation Dose Fluoroscopy time (minutes): 3.7 Reference air kerma (mGy): 39.4 Additional Details Additional description of procedure: None Equipment details: None Specimens removed: None Estimated blood loss (mL): Less than 10 Standardized report: [email or web address] Attestation Signer name: Nigel Paulino MD I attest that I was present for the entire procedure. I reviewed the stored images and agree with the report as written. Signed by: Nigel Paulino MD on 08/24/2019 4:29 PM
== END | disposition home or self-care (01) ==
LOC: OR 08:42
PROVIDERS: ATTEND Internal Medicine Gastroenterology
DX: K20.9 Esophagitis, unspecified (principal); K29.70 Gastritis, unspecified, without bleeding; K44.9 Diaphragmatic hernia without obstruction or gangrene; R41.82 Altered mental status, unspecified; F03.90 Unspecified dementia, unspecified severity, without behavioral disturbance, psychotic disturbance, mood disturbance, and anxiety; E11.9 Type 2 diabetes mellitus without complications; E03.9 Hypothyroidism, unspecified; I25.10 Atherosclerotic heart disease of native coronary artery without angina pectoris; E78.5 Hyperlipidemia, unspecified; I10 Essential (primary) hypertension; F32.9 Major depressive disorder, single episode, unspecified; F41.9 Anxiety disorder, unspecified; Z79.82 Long term (current) use of aspirin
CPT/HCPCS: 36415; 36569; 43235; 49440; 74470; 85610; 85730; 93005; J0690; J1610; J2001; J2250; J2704; J3010; J7050; Q9967; C1769

== ENCOUNTER 2019-09-12 13:23 | Emergency (ER) | payer MEDICARE, OTHER ==
[~2019-09-12] VITALS: Ht 152.4 cm; Wt 56.2 kg
[~2019-09-12 13:23] MED LIST changes: -CEFAZOLIN SOD 1 GM/NS 50ML 50 ML IV ONE; -FENTANYL CITRATE/PF 100MCG/2 ML INJ ONE; -GLUCAGON FOR INJ 1 MG VIAL IV STA; -IOPAMIDOL 300MG/ML 100 ML INFUS..BTL IV ONE; -LIDOCAINE HCL 1% LOCAL INJ 20 ML VIAL ONE; -MIDAZOLAM HCL 2 MG/2 ML VIAL ONE; -PROPOFOL IV EMULSION 10 MG/ML 20 ML VIAL ONE; -SODIUM CHLORIDE 0.9% 250ML 250 ML ONE
[2019-09-12] MEDS ORDERED: DIATRIZOATE MEGL/DIATRIZOA SOD 30 ML BTL PO ONE (14:11)
--- NOTE | 2019-09-12 14:12 | NUR ---
md used 16 fr cruz cathether from cruz catheter kit to keep hole open then inserted 16 fr g tube in pt; abdominal binder placed around pt to keep pt from pulling out g tube
[2019-09-12 14:16] VITALS: BP 121/80
--- NOTE | 2019-09-12 14:33 | NUR ---
transport arranged for pt back to [facility] home; eta 30-45 min
--- NOTE | 2019-09-12 15:03 | NUR ---
report given to valeri pike at [facility]
--- NOTE | 2019-09-12 15:23 | Diagnostic Imaging Report ---
Abdomen , one view History:Gastrostomy tube placement Comparison:none Findings: Nonobstructive bowel gas pattern. Injected contrast through patient's gastrostomy tube opacifies the stomach. No definite contrast extravasation. No definite bowel pneumatosis or portal venous gas. No calcifications along the expected course of the urinary tract. Impression: Apparent satisfactory position of gastrostomy tube. Nonobstructive bowel gas pattern. Signed by: Homar Lechuga MD on 09/12/2019 3:20 PM
== END 2019-09-12 15:31 | disposition home or self-care (01) ==
LOC: ER 13:23
DX: Z43.1 Encounter for attention to gastrostomy (principal); G30.9 Alzheimer's disease, unspecified; F02.80 Dementia in other diseases classified elsewhere, unspecified severity, without behavioral disturbance, psychotic disturbance, mood disturbance, and anxiety
CPT/HCPCS: 74018; 99283